=== PATIENT | male | born 1990 | race Caucasian/White ===

== ENCOUNTER 2017-01-30 22:19 | Emergency (ER) | payer OTHER ==
--- NOTE | 2017-01-30 22:28 | ED PSYCHIATRIC COMPLAINT ---
History of Present Illness General Chief Complaint: ETOH/Drug Related Complaint Stated Complaint: ETOH Source: patient, EMS, police Exam Limitations: clinical condition Vital Signs & Intake/Output Vital Signs & Intake/Output Vital Signs Date Time Temp Pulse Resp B/P Pulse O2 O2 Flow FiO2 Ox Delivery Rate 01/31 0653 97.1 114 16 172/53 97 Room Air 01/30 2233 99 Room Air 01/30 2233 96.9 84 20 146/77 99 Room Air ED Intake and Output 01/31 0000 01/30 1200 Intake Total Output Total Balance Patient 200 lb Weight Triage Note: PT ON PEER AFTER BEING FOUND WANDERING IN ROAD WITH TRAFFIC AND ROLLING AROUND. PT THEN ATTEMPTED TO ELOPE FROM PD CUSTODY. PT TAKEN DIRECTLY TO ROOM 13 FOR WANDING AND CHANGING INTO SCRUBS. APPEARS SIGNIFICANTLY INTOXICATED AND SMELLING OF ETOH Triage Nurses Notes Reviewed? yes HPI: 27 [address] in [address], brought in by PD on a PEER. Police report he had been drinking and was going to come voluntarily to the ER but then eloped and started to wander into traffic. His mother who presented later states that Martínez's girlfriend has been bringing alcohol to the house and possible other drugs. He has been drinking heavily for the past several weeks which is new for him. (CHAN CLARK MD) Allergies Coded Allergies: NO KNOWN ALLERGIES (01/31/17) Reconcile Medications No Known Home Medications (KEON ESTRADA MD) Past History Travel History Traveled to [place] past 21 day No Medical History Any Pertinent Medical History? none (unknown) Surgical History Surgical History: unobtainable Psychosocial History What is your primary language Faroese ETOH Use: heavy use (PER MOM) Family History Hx Contributory? No (CHAN CLARK MD) Review of Systems Review of Systems Constitutional: Reports: see HPI (UNABLE TO OBTAIN). (CHAN CLARK MD) Physical Exam Physical Exam General Appearance: SOMNOLENT, SNORING Head: atraumatic Eyes: Bilateral: PERRL. Neck: normal inspection Respiratory: normal breath sounds, chest non-tender, no respiratory distress Cardiovascular: regular rate/rhythm Gastrointestinal: soft, non-tender Neurological/Psychiatric: SNORING Appearance/Memory/Insight: disheveled Behavoir/Eye Contact/Speech: UNABLE TO OBTAIN Skin: intact, normal color, warm/dry SAD PERSONS Done? unobtained due to conditi (AMBER GUAJARDO,CHAN) Progress Differential Diagnosis: ALCOHOL ABUSE, DRUG ABUSE Plan of Care: Orders Procedure Date/time Status Regular Diet 01/31 B Active Continuous Observation Monitor 01/31 1900 Active Continuous Observation Monitor 01/31 1500 Active Continuous Observation Monitor 01/31 1100 Active Continuous Observation Monitor 01/31 0800 Active ED CRISIS PSYCH CONSULT 01/31 0705 Active Continuous Observation Monitor 01/31 0700 Active Continuous Observation Monitor 01/31 0400 Active Continuous Observation Monitor 01/31 0000 Active COMPREHENSIVE METABOLIC PANEL 01/30 2337 Complete CBC WITHOUT DIFFERENTIAL 01/30 2309 Complete Continuous Observation Monitor 01/30 2251 Active URINE DRUGS OF ABUSE 01/30 225 Complete ETHANOL 01/30 225 Complete Laboratory Tests 01/31/17 0818: Urine Opiates Screen < 100.00, Methadone Screen < 40, Barbiturate Screen < 60, Ur Phencyclidine Scrn < 6.00, Amphetamines Screen < 100, U Benzodiazepines Scrn < 85, Urine Cocaine Screen 243, Urine Cannabis Screen 7.60 01/30/172336: Anion Gap 14, Estimated GFR > 60, BUN/Creatinine Ratio 5.6 L, Glucose 96, Calcium 10.4 H, Total Bilirubin 0.6, AST 35, ALT 33, Alkaline Phosphatase 76, Total Protein 8.0, Albumin 4.7, Globulin 3.3, Albumin/Globulin Ratio 1.4, CBC w Diff NO MAN DIFF REQ, RBC 5.62, MCV 94.4 H, MCH 31.9 H, RDW 14.5, MPV 7.4, Gran % 71.1, Lymphocytes % 21.8, Monocytes % 5.7, Eosinophils % 0.9, Basophils % 0.5, Absolute Granulocytes 6.7 H, Absolute Lymphocytes 2.0, Absolute Monocytes 0.5, Absolute Eosinophils 0.1, Absolute Basophils 0.1, PUBS MCHC 33.8, Serum Alcohol 283.0 01/30/172308: Sodium Cancelled, Potassium Cancelled, Chloride Cancelled, Carbon Dioxide Cancelled, Anion Gap Cancelled, BUN Cancelled, Creatinine Cancelled, BUN/ Creatinine Ratio Cancelled, Glucose Cancelled, Calcium Cancelled, Total Bilirubin Cancelled, AST Cancelled, ALT Cancelled, Alkaline Phosphatase Cancelled, Total Protein Cancelled, Albumin Cancelled, Globulin Cancelled, Albumin/Globulin Ratio Cancelled Alcohol intoxication, on PEC. 10:51pm patient snoring in room, responsive to painful stimuli. (CHAN CLARK MD) Hand-Off Endorsed To: KEON ESTRADA MD Endorsed Time: 0700 Pending: consult (CRISIS), labs (UTOX), other (REEVLAUTION) (CHAN CLARK MD) Comments: Cleared by psychiatry for outpatient follow up (KEON ESTRADA MD) Departure Departure Condition: Stable Referrals: TAVIA HERNANDEZ MD (PCP/Family) (CHAN CLARK MD) Departure Time of Disposition: 957 Disposition: HOME OR SELF CARE Clinical Impression Primary Impression: Alcohol intoxication Qualifiers: Complication of substance-induced condition: with delirium Qualified Code: F10.121 - Alcohol abuse with intoxication delirium Additional Instructions: Follow up with the recommendations of the printing worker supervisor Departure Forms: General Discharge Information Prescriptions: Current Visit Scripts No Known Home Medications (KEON ESTRADA MD)
[2017-01-30 23:57] LABS: ABSOLUTE BASOPHIL COUNT 0.1 /CUMM (0.0-0.2); ABSOLUTE EOSINOPHIL COUNT 0.1 /CUMM (0.0-0.7); ABSOLUTE GRANULOCYTE CT 6.7 /CUMM (1.4-6.5); ABSOLUTE MONOCYTE COUNT 0.5 /CUMM (0.10-0.60); BASOPHIL % 0.5 % (0.0-2.0); EOSINOPHIL % 0.9 % (0-5); GRANULOCYTE % 71.1 % (42.2-75.2); HEMATOCRIT 53.1 % (42-52); MEAN CORPUSCULAR HGB 31.9 PG (27.0-31.0); MEAN CORPUSCULAR HGB CONC 33.8 G/DL (33.0-37.0); MEAN CORPUSCULAR VOLUME 94.4 FL (80.0-94.0); MEAN PLATELET VOLUME 7.4 FL (7.4-10.4); PLATELET COUNT 213 /CUMM (130-400); RBC DISTRIBUTION WIDTH 14.5 % (11.5-14.5); RED BLOOD CELL CT 5.62 /CUMM (4.70-6.10); WHITE BLOOD CELL COUNT 9.4 /CUMM (4.8-10.8)
[2017-01-31 06:53] VITALS: BP 172/53
--- NOTE | 2017-01-31 10:23 | ED PSYCH CRISIS CONSULTATION ---
Crisis Consult Basic Assessment Date of Consult: 01/31/17 Responsible Person/Accompanied By: self/biba on peer Insurance Authorization: Insurance #1: Insurance name: SELF-PAY Phone number: Policy number: Group number: Authorization number: ED Provider: Patient's ED Provider: KEON ESTRADA MD Primary Care Physician: Patient's PCP: TAVIA HERNANDEZ MD PCP's Current Psychiatrist: none Chief Complaint: ETOH/Drug Related Complaint Patient's Quote: I'm hungover. I don't remember. I was drinking all day. Present Illness: Pt is a 27 yo male biba last evening to [facility] on a [place] [employer] PEER. Pt was picked up by PD for intoxification and attempt to elope from police. Pt reports no prior mental health or substance abuse tx hx. Pt denies SI/HI. Pt reports that he was celebrating his bday yesterday and was drinking all day. He reports blacking out and not being able to recall events that led to police contact and being brought to [facility]. Pt denies cocaine and cannabis use but traces were found in tox screen. Pt reports he must have used while under the inluence last evening. Pt reports he typically only drinks on the weekends (mother reports use is closer to 5x/wk). Pt presented as easily engaged, tired/hungover and embarrassed for his actions. He expressed concern that his family would be upset with him. Pt was OX3 with congruent mood/affect with fair insight/judgement. Pt was initially dismissive of need for treatment to help decrease etoh but after receiving feedback that his mother was concerned that his etoh use was becoming problematic he expressed a more open attitude in following up with outpatient services. Patient's Address: [address] [place] [address] Other Phone Number: Who Do You Live With? Family (parents and siblings) Family/Informants Interviewed: collateral provided by pt mother Kasey Watt - . She expressed concern that pt has recently increased etoh use and becomes emotional and destructive when drunk. She would like pt to get outpatient tx to stop drinking. Allergies - Coded Allergies: NO KNOWN ALLERGIES (01/31/17) Current Medications - No Known Home Medications Laboratory Results: Laboratory Tests 01/31/17 0818: Urine Opiates Screen < 100.00, Methadone Screen < 40, Barbiturate Screen < 60, Ur Phencyclidine Scrn < 6.00, Amphetamines Screen < 100, U Benzodiazepines Scrn < 85, Urine Cocaine Screen 243, Urine Cannabis Screen 7.60 01/30/17 2337: Anion Gap 14, Estimated GFR > 60, BUN/Creatinine Ratio 5.6 L, Glucose 96, Calcium 10.4 H, Total Bilirubin 0.6, AST 35, ALT 33, Alkaline Phosphatase 76, Total Protein 8.0, Albumin 4.7, Globulin 3.3, Albumin/Globulin Ratio 1.4, CBC w Diff NO MAN DIFF REQ, RBC 5.62, MCV 94.4 H, MCH 31.9 H, RDW 14.5, MPV 7.4, Gran % 71.1, Lymphocytes % 21.8, Monocytes % 5.7, Eosinophils % 0.9, Basophils % 0.5, Absolute Granulocytes 6.7 H, Absolute Lymphocytes 2.0, Absolute Monocytes 0.5, Absolute Eosinophils 0.1, Absolute Basophils 0.1, PUBS MCHC 33.8, Serum Alcohol 283.0 01/30/17 2309: Sodium Cancelled, Potassium Cancelled, Chloride Cancelled, Carbon Dioxide Cancelled, Anion Gap Cancelled, BUN Cancelled, Creatinine Cancelled, BUN/ Creatinine Ratio Cancelled, Glucose Cancelled, Calcium Cancelled, Total Bilirubin Cancelled, AST Cancelled, ALT Cancelled, Alkaline Phosphatase Cancelled, Total Protein Cancelled, Albumin Cancelled, Globulin Cancelled, Albumin/Globulin Ratio Cancelled Past History Past Medical History Neurological: NONE EENT: NONE Cardiovascular: NONE Respiratory: NONE Gastrointestinal: NONE Hepatic: NONE Renal: NONE Musculoskeletal: NONE Psychiatric: NONE Endocrine: NONE Blood Disorders: NONE Cancer(s): NONE Past Surgical History Surgical History: unobtainable Psychosocial History Strengths/Capabilities: supportive family. 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 He denies etoh use as a concern although mother reports he received a dui in May 2016. Cocaine and cannabis traces in tox screeen. Pt reports not remembering using cocaine or cannabis but admitted he may have used last evening while drinking. Current Mental Status Mental Status Orientation: Person, Place, Situation Affect: Anxious Speech: WNL Neuro-vegetative: WNL Appearance Appearance- Dress/Hygiene: hospital scrubs. Appeared tired (hungover). facial hair growth. Sat up during consult. good eye contact. Behaviors Thought Process: WNL Thought Content: WNL Memory: WNL Insight: Fair SI/HI Risk Assessment Past Suicidal Ideation/Attempts No Current Suicidal Ideation/Att No Past Homicidal Ideation/Att: No Current Homicidal Ideation/Attempts No Degree of Intent: None Gravely Disabled: Poor Judgment Risk Factors: substance abuse, male Lethality Ratin (mild) PTSD Checklist PTSD Done? patient declined ED Management Sitter: Yes Restraints: No DSM5/PS Stressors/Medical Prob Diagnosis' (DSM 5, Stressors, Medical): Alcohol Use Moderate (F10.20) Current GAF: 40 Comments: Pt reportedly was drinking all day to celebrate his birthday. He recalls blacking out and not remembering what led to police involvement and being brought to [facility]. Pt denies SI/HI. Pt denies thinking he has a problem with etoh or substance use. Departure Disposition Psych Medical Clearance Date: 01/31/17 Medically Cleared at: 0915 Time Started: 0920 Time Ended: 1000 Psychiatrist Consulted: Raiza Castillo MD Date Disposition Established: 01/31/17 Time Disposition Established: 1005 Plan for Disposition - Modality: Pt provided outpatient programs resource list. Encouraged to follow up. Facility: Patient to Arrange Rationale for Disposition: PT denies SI HI. Pt not a danger to self or others. Pt provided resource list for outpatient services to help with decreasing etoh use. Pt encouraged to follow up and make an appointment. Referrals TAVIA HERNANDEZ MD (PCP/Family)
== END 2017-01-31 10:53 ==
LOC: ERH 22:19
PROVIDERS: Emergency Medicine
DX: F10.129 Alcohol abuse with intoxication, unspecified (principal)
CPT/HCPCS: 80307; G0463; G0480

== ENCOUNTER 2017-02-04 18:20 | Emergency (ER) | payer OTHER ==
[~2017-02-04] VITALS: Ht 165.1 cm; Wt 72.6 kg
--- NOTE | 2017-02-04 18:45 | ED HAND/WRIST INJURY COMPLAINT ---
History of Present Illness General Chief Complaint: Hand or Wrist Injury Stated Complaint: PT HAS A CUT ON THE RIGHT HAND ??? INFECTION Source: patient Exam Limitations: no limitations Vital Signs & Intake/Output Vital Signs & Intake/Output Vital Signs Date Time Temp Pulse Resp B/P Pulse O2 O2 Flow FiO2 Ox Delivery Rate 02/04 1935 98.9 100 18 148/98 97 Room Air 02/04 1834 99.0 113 18 159/101 96 Room Air Allergies Coded Allergies: NO KNOWN ALLERGIES (01/31/17) Reconcile Medications Amoxicillin 875 MG TABLET 1 TAB PO BID cellulitis Sulfamethoxazole/Trimethoprim (Bactrim Ds Tablet) 800 MG-160 MG TABLET 1 TAB PO BID INFECTION Triage Note: PRESENTS TO ED FOR EVALUATION OF SWOLLEN RIGHT HAND S/P PUNCHING A TAIL LIGHT 2 WEEKS. REPORTS + PUS LIKE DISCHARGE. Triage Nurses Notes Reviewed? yes HPI: Patient is a 27 year old male presents complaining of right hand pain and swelling onset yesterday. Patient punched a taillight 2 weeks ago. Redness, swelling, difficulty flexing fingers. Pain is moderate to severe. Drainage from wound, purulent, last night. Past History Travel History Traveled to [place] past 21 day No Medical History Any Pertinent Medical History? see below for history Neurological: NONE EENT: NONE Cardiovascular: NONE Respiratory: NONE Gastrointestinal: NONE Hepatic: NONE Renal: NONE Musculoskeletal: NONE Psychiatric: substance abuse Endocrine: NONE Blood Disorders: NONE Cancer(s): NONE Surgical History Surgical History: unobtainable Psychosocial History Who do you live with Family What is your primary language Macanese Tobacco Use: Current Daily Use Daily Tobacco Use Amount/Type: => 5 Cigarettes daily Illicit Drug Use: cocaine, marijuana Family History Hx Contributory? No Review of Systems Review of Systems Constitutional: Denies: chills, fever. GI: Denies: abdominal pain, nausea, vomiting. Musculoskeletal: Reports: see HPI. Skin: Reports: see HPI. Neurological/Psychological: Denies: numbness. Hematologic/Endocrine: Denies: bruising, bleeding. Immunologic/Allergic: Denies: see HPI, lymphadenopathy. Physical Exam Physical Exam General Appearance: well developed/nourished, alert, awake Head: atraumatic, normal appearance Eyes: Bilateral: normal appearance. Neck: normal inspection, full range of motion Cardiovascular/Respiratory: no respiratory distress Back: normal range of motion Elbow Right: normal range of motion, normal inspection Hand Left: normal inspection, normal range of motion Hand Right: 1.5cm laceration over the distal 3rd metacarpal on the dorsal side. Diffuse swelling dorsal hand. Mild erythema, no drainage. Full range of motion of fingers. Mild erythema to right distal forearm on the posterior side. No involvement of the volar surface of the hand. Neurologic/Tendon: normal sensation, normal motor functions, normal tendon functions Lymphatic: no axillary lymphadenopathy Progress Differential Diagnosis: abscess, cellulitis, foreign body, tenosynovitis Plan of Care: Orders Procedure Date/time Status XRY-HAND, 3 View RIGHT 02/04 1902 Active No involvement of the volar surface. No visible or palpable foreign body, no fb on x-ray. Will start patient on oral antibiotics. Stressed the importance of returning immediately if worsening, and hand follow up if (MARCO MONREAL,ALEXANDRA) Departure Departure Time of Disposition: 1926 Disposition: HOME OR SELF CARE Condition: Stable Clinical Impression Primary Impression: Cellulitis of hand, right Referrals: KENJI GUAJARDO,NINI PATIENT HAS NO PRIMARY CARE DR (PCP/Family) JOSÉ MIGUEL GUAJARDO,ROBBY Graf Additional Instructions: Rest, elevate your hand above the level of your heart, warm compresses for 10-20 minutes 4-5 times a day. Follow up with one of the hand specialists listed in your discharge paperwork if no improvement within 2-3 days. Return to the ER if temperature above 100.4, redness spreading, or worsening of symptoms. Departure Forms: Customer Survey General Discharge Information Prescriptions: Current Visit Scripts Amoxicillin 1 TAB PO BID #14 TAB Sulfamethoxazole/Trimethoprim (Bactrim Ds Tablet) 1 TAB PO BID #14 TAB
[2017-02-04] MEDS ORDERED: BACTRIM DS TAB1 EACH PO (19:27)
[2017-02-04] MEDS ORDERED: AMOXICILLIN875 M1 PO (19:27)
--- NOTE | 2017-02-04 19:29 | RADIOLOGY REPORT ---
EXAMINATION: RIGHT HAND 3 VIEWS CLINICAL INFORMATION: Right hand pain following injury. COMPARISON: None. TECHNIQUE: PA, lateral, oblique views of the right hand were obtained. FINDINGS: There is diffuse soft tissue swelling about the dorsum of the hand. No acute fractures are identified. There is the appearance of a likely old healed distal fifth metacarpal fracture. IMPRESSION: Diffuse soft tissue swelling without evidence of acute osseous injury.
[2017-02-04 19:35] VITALS: BP 148/98
== END 2017-02-04 19:38 ==
LOC: ERH 18:20
DX: L03.113 Cellulitis of right upper limb (principal)
CPT/HCPCS: 73130-RT